=== PATIENT | male | born 1975 | race Caucasian/White ===

== ENCOUNTER 2020-05-21 15:58 | Outpatient (CLI) | payer BC, SELFPAY ==
--- NOTE | 2020-05-21 16:07 | MR_ITS ---
WS: [id number] MRI RIGHT KNEE NONCONTRAST TECHNIQUE: Axial PD, coronal PD fat sat, coronal PD, sagittal PD, and sagittal PD fat-sat images obta ined. CLINICAL INFORMATION: RIGHT MEDIAL MENISCUS TEAR COMPARISON: None. FINDINGS: Distal quadriceps and patella tendons are intact. Hypertrophic patella. Anterior and posterior crucia te ligaments are intact. Large suprapatellar effusion. Edema in Hoffa's fat pad. Distention of the colvin prapatellar bursa. Acute longitudinal tear involving the posterior horn medial meniscus extending to the articular surfa ce. Blunting of the medial meniscus. Lateral meniscus is intact. Mild chondromalacia patella. No subchondral edema. Slightly hypertrophic patella. Medial and lateral patellar retinacula appear intact. Medial collateral ligament appears intact. Irregularity with intra substance tear involving the mid to distal lateral collateral ligament consistent with Grade 2-3 injury Small lobulated popliteal cyst measuring 2.3 x 0.8 x 4.1 CM. Mild chronic thinning of the medial and lateral joint compartments with mild chondromalacia. MR/MR knee RT wo con* [id number] IMPRESSION: 1. Large suprapatellar effusion with distention of the suprapatellar bursa. 2. Anterior and posterior cruciate ligaments are intact. 3. Acute tear involving the posterior horn medial meniscus extending to the ar ticular surface with blunting of the medial meniscus. 4. Grade 2-3 injury involving the lateral collateral ligament with surrounding edema and intrasubstance signal abnormality. 5. Medial collateral ligament appears intact. 6. Grade I chondromalacia patella. 7. Lobulated popliteal cyst as above. 8. Mild chronic narrowing involving the medial and lateral joint compartments.
== END 2020-05-21 15:59 | disposition home or self-care (01) ==
PROVIDERS: Family Provider Family Medicine; PCP Family Medicine; Visit Provider Family Medicine
DX: S83.241A Other tear of medial meniscus, current injury, right knee, initial encounter (principal); X58.XXXA Exposure to other specified factors, initial encounter; M25.461 Effusion, right knee; M22.41 Chondromalacia patellae, right knee; M71.21 Synovial cyst of popliteal space [Baker], right knee
CPT/HCPCS: 73721

== ENCOUNTER → 2020-05-22 13:29 | Outpatient (BNVA) | payer BC, SELFPAY | PROVIDERS: Family Provider Family Medicine; PCP Family Medicine; Referring Provider Family Medicine; Visit Provider Specialist | DX: M25.569 Pain in unspecified knee (principal); M25.461 Effusion, right knee | CPT/HCPCS: 73560; 73565; 80500; 84450; 87070; 87075; 87077; 87186; 89050 ==

== ENCOUNTER 2020-05-23 14:38 | Outpatient (CLI) | payer BC, SELFPAY ==
[2020-05-23 15:12] LABS: Basophils # 0.1 10^3/uL (0.0-0.1); Basophils % 0.4 %; Eosinophils # 0.1 10^3/uL (0.0-0.8); Eosinophils % 0.8 %; Hematocrit 42.2 % (42.0-52.0); Hemoglobin 14.5 g/dL (11.7-16.6); Lymphocytes % 8.6 %; Mean Corpuscular HGB Conc 34.4 g/dL (30.0-36.0); Mean Corpuscular Hemoglobin 29.4 pg (28.0-34.0); Mean Corpuscular Volume 85.4 fL (80-94); Mean Platelet Volume 9.1 fL (7.4-10.4); Monocytes # 1.6 10^3/uL (0.2-0.9); Monocytes % 13.8 %; Neutrophils # 9.01 10^3/uL (1.8-7.7); Nucleated Red Blood Cells % 0 %; Platelet Count 272 10^3/cmm (130-400); Red Blood Count 4.94 10^6/uL (4.1-5.3); Red Cell Distribution Width 10.7 % (12.1-15.1); White Blood Count 11.9 10^3/uL (4.0-10.0)
[2020-05-23 16:04] LABS: Erythrocyte Sedimentation Rate 94 mm/hr (0-10)
[2020-05-23 16:20] LABS: C Reactive Protein 527.9 mg/L (0.0-4.9)
== END 2020-05-23 14:39 | disposition home or self-care (01) ==
LOC: LAB 14:42
PROVIDERS: Family Provider Family Medicine; PCP Family Medicine; Visit Provider Specialist
DX: S83.429A Sprain of lateral collateral ligament of unspecified knee, initial encounter (principal); S83.249A Other tear of medial meniscus, current injury, unspecified knee, initial encounter; X58.XXXA Exposure to other specified factors, initial encounter
CPT/HCPCS: 85025; 85651; 86140

== ENCOUNTER 2020-05-24 12:27 | Observation (INO) | payer BC, SELFPAY ==
[2020-05-24] VITALS (24 sets, daily range): BP systolic 135–175; BP diastolic 83–108; PULSE 77–123; RESP 15–20; TEMP 36.3–37.7; O2SAT 94–100; BMI 26.6; BMI 27.8
--- NOTE | 2020-05-24 12:55 | ED_ITS ---
HPI - General Adult General: Chief complaint: Medical Clearance Stated complaint: needs covid test for surgery Time Seen by Provider: 05/24/20 12:46 Source: patient Mode of arrival: ambulatory Limitations: no limitations History of Present Illness: HPI narrative: 44-year-old male who who is here for code screening before surgery. Patient has concerns for septic joint to right knee. Patient's had no cough or contact with anyone with coronavirus. He states he does have knee pain currently rates a 7 out of 10. Patient is scheduled for surgery this afternoon with Dr. Vera. Associated symptoms: Deny chest pain, dyspnea, headache(s), nausea, rash or vomiting Review of Systems Const: Denies: fever(s), chills, body aches or change in appetite Eyes: Denies: blurry vision or eye discomfort ENMT: Denies: throat pain or dental pain Card: Denies: chest pain Resp: Denies: dyspnea GI: Denies: abdominal pain, nausea, vomiting or diarrhea : Denies: dysuria Musc: Reports: extremity pain Skin/Breast: Denies: rash Neuro: Denies: headache(s) Psych: Denies: depression Johnnie/Lymph: Denies: easy bruising All/Imm: Denies: urticaria PFSH ED PFSH: Social History Smoking and tobacco status: never smoked Alcohol intake: current Alcohol intake frequency: few times a week Physical Exam Const: COMMON NORMALS: no acute distress, patient oriented x3 and healthy appearing HENMT: COMMON NORMALS: normocephalic and atraumatic HEAD & SCALP: normocephalic and atraumatic Eye: COMMON NORMALS: Equal, round and reactive pupils present and EOMs intact bilaterally PUPIL: Yes Equal, round and reactive pupils present Neck/C-Spine: COMMON NORMALS: full ROM and supple Chest: COMMONS NORMALS: normal inspection of the chest and normal palpation of entire chest wall Resp: COMMON NORMALS: normal respiratory effort, No retractions, No use of accessory muscles and clear to auscultation bilaterally AUSCULTATION: clear to auscultation bilaterally Cardio: COMMON NORMALS: regular rate, regular rhythm and No murmurs present (Cardio) RATE: regular rate RHYTHM: regular rhythm GI: COMMON NORMALS: Normal to inspection, nondistended, normoactive bowel sounds present, Soft to palpation, non-tender and no masses PALPATION: Yes Soft to palpation Extremity: COMMON NORMALS: normal to inspection and full ROM Neuro: COMMON NORMALS: patient oriented x3, moves all extremities and no focal motor deficits Psych: COMMON NORMALS: mental status grossly normal, Normal thought process present and cooperative THOUGHT PROCESS: Normal thought process present Skin: COMMON NORMALS: no rashes or lesions noted and no wounds GENERAL SKIN EXAM: no rashes or lesions noted Course Vital Signs: Vital signs: Vital Signs Temperature 98.8 F 05/24/20 12:40 Pulse Rate 123 H 05/24/20 12:40 Respiratory Rate 18 05/24/20 14:25 Blood Pressure 145/88 05/24/20 12:40 Pulse Oximetry 98 05/24/20 12:40 MDM - General Adult MDM Narrative: Medical decision making narrative: Patient presents here with likely septic knee joint. Patient has no signs of COVID. I spoke to Dr. Vera and will admit at this time and she is taken to surgery this afternoon. Patient has been stable while here. Discharge Plan Discharge Patient Disposition: Admitted As Inpatient Admit Provider: Addie Rodriguez Clinical Impression: Septic joint of right knee joint Qualifiers: Septic arthritis organism: due to unspecified organism Qualified Code(s): M00.9 - Pyogenic arthritis, unspecified Condition: Stable Coding Level of Care Code ED Interior Decorator for Vanessa Fwd Exam Comprehensive
--- NOTE | 2020-05-24 13:35 | PM.HP ---
Providers/Chief Complaint Primary Care Provider: José Miguel Rivera MD Chief Complaint: needs covid test for surgery History of Present Illness Rios Gary is a 44 year old male Medications/Allergies Home Medications Medication Instructions Recorded Confirmed Last Taken Type celecoxib 200 mg capsule 200 mg PO BID #60 cap 05/22/20 05/22/20 Unknown Rx hydrocodone 5 mg-acetaminophen 325 1 tab PO Q4H PRN 05/22/20 05/22/20 Unknown History mg tablet ibuprofen 200 mg tablet 200 mg PO Q6H PRN 05/22/20 05/22/20 Unknown History Knee Immobilizer #1 each 05/23/20 05/23/20 Unknown Rx Allergies Allergy/AdvReac Type Severity Reaction Status Date / Time Penicillins Allergy Unknown Verified 05/22/20 13:51 PFSH Acute PFSH: Social History Smoking and tobacco status: never smoked Alcohol intake: current Alcohol intake frequency: few times a week Vitals/I&O/Wt Last Vital Signs Temp 98.8 F 05/24/20 12:40 Pulse 123 H 05/24/20 12:40 Resp 18 05/24/20 12:40 BP 145/88 05/24/20 12:40 Pulse Ox 98 05/24/20 12:40 Weight last 48 hrs Weight 165 lb Coding Level of Care Code Acute Photogrammetric Technician for Vanessa Sebastian
[2020-05-24] MEDS: ondansetron 2 mg/ML SDV 2 mL 4 MG IVP (14:25)
[2020-05-24] MEDS: HYDROmorphone 1 mg/mL INJ 1 mL IVP (14:25)
[2020-05-24 15:26] LABS: SARS Covid-2 Antigen Negative (Negative)
--- NOTE | 2020-05-24 16:09 | ANES.PREANE2 ---
Pre-Anesthetic Assessment Pre-Anesthetic Assessment: Height/Weight: Height 1.68 m Weight 78.103 kg Temp Pulse Resp BP Pulse Ox 99.1 F 110 H 18 137/86 97 05/24/20 15:47 05/24/20 15:47 05/24/20 15:47 05/24/20 15:47 05/24/20 15:47 Preop Diagnosis: Septic right knee Proposed Procedure: Operation Date: 05/24/20 16:30 Proposed Procedures p Knee Arthroscopy(Right) - Addie Rodriguez MD Familial anesthetic complications: Patient adopted, no previous hx Was Beta Callie taken within 24 hours: N/A Last intake: Intake NPO > 8 hrs (states poor appetite, has not had bowel movement since tuesday. No nausea/vomiting) Last Liquid Date 05/24/20 Last Liquid Time 08: Last Solid Date 05/24/20 Last Solid Time 08: Social: Social History: Alcohol and Tobacco Comment: occassional beer Exam: Pre-Anes Outpt Exam: alert, oriented x 3, clear to auscultation bilaterally and regular rate & rhythm Airway: Cervical ROM: WNL MP: 1 Dentition: Full Anesthetic Plan: ASA status: 1 Anesthesia: General Risk of > 500 ml blood loss (7ml/kg in children): No PFSH Anesthesia PFSH: Social History Smoking and tobacco status: never smoked Alcohol intake: current Alcohol intake frequency: few times a week Data Anesthesia Other Labs: Laboratory Results - last 48 hr 05/24/20 14:45 SARS-CoV-2 Ag (Rapid) Negative Cardiac Studies: No Data to Display
--- NOTE | 2020-05-24 16:16 | PC.CHAP ---
Pastoral Care Encounter/Spiritual Assessment Type of Contact [] Declined spreading machine operator visit [] Patient/Family/Request visit [] Outpatient visit [] Follow-up visit [] Physician referral [] Code/Alert [X] Routine visit [] Staff referral [] Actively dying [] Patient sleeping [] Family support [] [] Out of room [] Palliative care [] [] Receiving care in room [] Pre-surgical visit [] Trauma [] Long length of stay [] ICU visit [] Other: Relational/Emotional Strength [] Patient feels connected with others/family/visitors/staff [] Distress [] Loneliness/isolation [] Abandonment Spirituality of Patient [] Person of Precious [] Attends Caodaism of their Precious [] Believes in Prayer [] Reads Bible or Nondenominational materials [] There are Spiritual issues to be addressed Retail Support Specialist Interventions [] Prayer [] Active listening [] Non-anxious presence [] Spiritual/emotional support [] Crisis/trauma care [] Spiritual counseling [] Bereavement support [] Provided bereavement packet [] Provided Bible/devotional materials [] Provided toy/stuffed animal, coloring book to patient or family member [] Provided Communion [] Anointing/[place] [] Salvation [] Completed spiritual assessment [] Other: Impact on Illness or Injury [] Angry [] Fearful [] Anxious [] Often cries [] Exhaustion [] Unable to work [] Unable to attend cheondoism [] Unable to walk/stand [] Unable to read [] Unable to drive [] Unable to eat/drink [] Unable to sleep [] Unable to be with family [] Patient intubated [] Other: Summary Time spent with patient
[2020-05-24] MEDS: sodium chloride 0.9% 1,000 ML 30 ML IV (16:20)
--- NOTE | 2020-05-24 16:30 | W.PM.OPSUD ---
Surgery/Procedure H&P Update DATE OF PROCEDURE: May 24, 2020 DATE H&P PERFORMED: 05/22/20 H&P UPDATE INFORMATION: I have reviewed H&P completed within last 30 days, I have examined patient prior to procedure and Changes to prior documentation as noted here CHANGES TO PREVIOUS DOCUMENTATION: The patient's culture results returned with positive strep B, sed rate is elevated, and based upon these results, we have elected to urgently proceed with arthroscopic evaluation, irrigation, and debridement. Was called with these results this morning. Secondary to having eaten shortly prior to my phone call to him, we scheduled him as urgently as possible with out anesthesia risk being increased. The patient was advised of the surgical plan, risks, and complications over the telephone. PREOP DIAGNOSIS: Septic right knee PRIMARY INDICATION FOR PROCEDURE: Septic arthritis right knee. PLANNED PROCEDURE: Operation Date: 05/24/20 16:30 Proposed Procedures p Knee Arthroscopy(Right) - Addie Rodriguez MD Related Problem List Diagnoses (1) Septic joint of right knee joint: Qualifiers: Septic arthritis organism: due to unspecified organism Qualified Code(s): M00.9 - Pyogenic arthritis, unspecified (2) Rupture of lateral collateral ligament of knee: (3) Medial meniscus tear: Qualifiers: Tear current or old: current Encounter type: initial encounter Meniscus tear of knee type: complex Laterality: right Qualified Code(s): S83.231A - Complex tear of medial meniscus, current injury, right knee, initial encounter
[2020-05-24] MEDS: ceFAZolin 1,000 mg SDV 6000 MG IRRIGATION (17:15)
[2020-05-24 17:35] LABS: RBC Synovial Fluid 18 10^3/uL (0-0); Synovial Fluid Mononuclear # 3.233 10^3/uL
[2020-05-24 17:43] LABS: Color Synovial Fluid YELLOW (PALE YELLOW)
[2020-05-24 17:44] LABS: Appearance Synovial Fluid CLOUDY (CLEAR); PATH Referal YES
[2020-05-24] MEDS: morphine 4 mg/mL SDV 1 mL 8 MG IVP (17:45)
--- NOTE | 2020-05-24 17:58 | PM.OP ---
Operative Report Date of procedure: May 24, 2020 Pre-op Diagnosis: Right Knee Septic Arthritis with Medial Meniscus Tear Post-op Diagnosis: Right Knee Septic Arthritis with Medial and Lateral Meniscus Tear Post-op Findings: Significant synovitis and synovial fluid with obvious infection with medial and lateral meniscal tears Procedure Done: Right arthroscopic knee surgery with partial medial and lateral meniscectomies, extensive sign of ectomy, and irrigation and debridement with 12 L of fluid Specimens removed/disposition: Fluid and synovial tissue removed for culture. Pathology: none sent Surgeon: Addie Rodriguez Veterinary Pharmacologist: [facility] OR technicians Anesthesia: General (With LMA) Estimated blood loss (mL): 5 Tourniquet time (min): 53 Tourniquet time: At 300 mmHg IV fluids (mL): 800 Urine output (mL): 0 Complications: None Findings: Very thick synovial fluid, cloudy and purulent, consistent with significant infection. Significant synovitis also consistent with infection. Complex medial meniscal tear as outlined on MRI plus lateral meniscal tear, inner rim only. Condition: stable Disposition: PACU (Then to floor for postoperative antibiotics for 24 hours. 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 He saw his primary care who arranged for him to have an MRI prior to seeing me. There was noted to be an effusion and a medial meniscal tear with associated tear of the lateral collateral ligament. Patient was seen in my office, his knee was aspirated for 75 cc of fluid which was somewhat cloudy. This was sent for Gram stain, cell count, and culture. Today, I was notified that the patient's culture was growing strep B, therefore, the patient was brought to the hospital for urgent arthroscopic irrigation and debridement with partial medial and lateral meniscectomies and extensive synovectomy. Procedure: Patient was brought to the operating theater and after undergoing adequate neuro anesthesia per LMA, the patient's right lower extremity was prepped and draped in usual fashion utilizing DuraPrep. A tourniquet was placed high on the leg prior to prepping and draping. The tourniquet was elevated prior to commencement of the surgical procedure to 300 mmHg. Total tourniquet time was 53 minutes. Exsanguination was not performed prior to elevation of the tourniquet secondary to the infection. Prior to commencement of the surgical procedure, a surgical pause was performed. At the time of the surgical pause, we identified the site and side of surgery. We also confirmed the patient's identity and availability of Ancef after cultures were obtained. Preoperative surgical markings were also visualized at this time. Standard arthroscopic portals were utilized including superolateral, inferomedial, and inferolateral portals. When these portals were made, there was noted to be significant pressure in the knee, and approximately 50 cc of fluid which was quite thickened and purulent was collected. This was sent for cell count with differential, cultures, and additionally, synovial tissue was collected for culture. The examination commenced in the suprapatellar pouch area where there was significant synovitis and erythema about the synovium. This was debrided with a shaver to allow better visualization. The arthroscope was then passed in the medial compartment where there was noted to be significant synovitis obscuring the view of the joint. This was debrided aggressively with an intra-articular shaver. The heat wand was also used to obtain hemostasis. The medial meniscus was evaluated and found to be torn as noted on the MRI. This was debrided with a combination of basket forceps and the intra-articular shaver. The meniscus was pulled upon after being addressed in this manner, and it was found to not be displaceable into the knee joint. The arthroscope was then passed across the notch area where anterior cruciate ligament was visualized and found to be intact, but again extensive synovium was debrided from this area. The scope was passed into the lateral compartment with the knee in a [id number] position. Lateral meniscus was noted to have inner rim tearing. There was also significant synovitis in the lateral compartment. This was debrided once again with the intra-articular shaver. The meniscus was debrided with a combination of the shaver and the intra-articular heat wand. Once lateral meniscus had been thus prepared it was palpated and found to be intact and not displaceable into the knee joint. Scope was then returned to the medial compartment where final evaluation of this compartment was accomplished. The arthroscope was then returned to the patellofemoral joint where further synovectomy was accomplished including addressing both gutters. The scope was passed back through the knee compartments to evaluate for other abnormalities. Finding none, attention was directed to closure. The knee was copiously irrigated and suctioned dry. Following this, each portal was closed with a simple suture using 3-0 nylon. Additionally, the knee was injected with 20 mL of half percent ropivacaine, 20 mils of 1% lidocaine with epinephrine and 8 mg of morphine. Additional 10 mL of ropivacaine was placed about the portals. Sterile dressing was placed consisting of the Xeroform gauze 4 x 4's, soft roll, and an Rico wrap. Patient was returned to Recovery Room in satisfactory condition where he will be discharged to the floor for 24 hours of postoperative antibiotics and he is instructed to follow-up with me in the office as scheduled. There were no complications and specimens were sent to microbiology. Associated Problem List Diagnoses (1) Septic joint of right knee joint: Qualifiers: Septic arthritis organism: due to unspecified organism Qualified Code(s): M00.9 - Pyogenic arthritis, unspecified (2) Rupture of lateral collateral ligament of knee: (3) Medial meniscus tear: Qualifiers: Encounter type: initial encounter Laterality: right Meniscus tear of knee type: complex Tear current or old: current Qualified Code(s): S83.231A - Complex tear of medial meniscus, current injury, right knee, initial encounter
[2020-05-24] MEDS: fentaNYL 50 mcg/mL INJ 2mL IVP ×2 (18:22→18:27)
--- NOTE | 2020-05-24 19:10 | SUR.PHASEI ---
184 PT BP ELEVATED SINCE AT BEDSIDE, PT ENCOURAGED TO RELAX , AND SLOW BREATHES, PT TALKATIVE AND CALM, STATES MY LEG DOESNT HURT , IT JUST ISNT COMFORTABLE, SEE PAIN MEDS GIVEN EARLIER FOR PT RATING DISCOMFORT AT 8 , PT NOW DOZING AFTER LEFT, REPORT CALLED AND PT TO FLOOR BP INPROVED. 1849 PT MOVED SELF TO BED DISTAL RT FOOT PINK WARM CAP REFILL <3 SECONDS, PT TALKATIVE WITH STAFF, STATES ( MY LEG FEELS BETTER) BP 137/94, HR 91 RESP 18 SATS ON RA 97&
[2020-05-24] MEDS: acetaminophen 500 mg Tablet 1000 MG PO (19:29)
[2020-05-24] MEDS: docusate sodium 100 mg Capsule PO (19:29)
[2020-05-24] MEDS: CELEcoxib 200 mg Capsule PO (19:29)
[2020-05-25] VITALS: BP 135/76; PULSE 77; RESP 18; TEMP 36.7; O2SAT 95
[2020-05-25] MEDS: acetaminophen 500 mg Tablet 1000 MG PO (03:54)
[2020-05-25 05:20] VITALS: BP 127/80; PULSE 71; RESP 17; TEMP 37.2; O2SAT 95
[2020-05-25] MEDS: aspirin 325 mg EC Tablet PO (07:08)
[2020-05-25] MEDS: CELEcoxib 200 mg Capsule PO (07:08)
[2020-05-25] MEDS: docusate sodium 100 mg Capsule PO (07:08)
[2020-05-25 07:39] VITALS: BP 150/90; PULSE 92; RESP 18; TEMP 36.4
[2020-05-25 08:46] VITALS: BP 150/90; PULSE 92; RESP 18; TEMP 36.4
[2020-05-25 12:00] VITALS: PULSE 94; TEMP 36.3
--- NOTE | 2020-05-25 12:45 | PM.DCS ---
Discharge Providers Date of Admission: 05/24/20 19:01 Date of Discharge: May 25, 2020 Attending Provider at Admission: Addie Rodriguez MD Attending Provider at Discharge: Addie Rodriguez MD Primary Care Provider: José Miguel Rivera MD Diagnoses at Discharge Discharge Diagnosis (1) Septic joint of right knee joint: Status: Acute Qualifiers: Septic arthritis organism: due to unspecified organism Qualified Code(s): M00.9 - Pyogenic arthritis, unspecified (2) Rupture of lateral collateral ligament of knee: Status: Acute (3) Medial meniscus tear: Status: Acute Qualifiers: Tear current or old: current Encounter type: initial encounter Meniscus tear of knee type: complex Laterality: right Qualified Code(s): S83.231A - Complex tear of medial meniscus, current injury, right knee, initial encounter (4) Lateral meniscus derangement: Status: Acute Reason for Visit Reason for Visit: Septic Right Knee Brief History: This 44 year old male patient presented upon referral from his primary care physician with an injury to the right knee and MRI findings of lateral collateral ligament and medial meniscal tear Hospital Course Hospital Course: The patient was brought urgently to the hospital due to positive cultures from his knee aspirate. He was scheduled for the following procedure: Right arthroscopic knee surgery with partial medial and lateral meniscectomies, extensive synovectomy, and irrigation and debridement with 12 L of fluid Discharge Summary: The patient was sent to the floor following arthroscopic irrigation and debridement with synovectomy and partial medial and lateral menisectomies. He was maintained in hospital for IV antibiotic therapy. Following the surgery, he was better able to ambulate with less pain. He remained neurologically intact. The patient was discharged home the first post-op day to follow up with me in the office the following day. Discharge Data Data Completed and Pending: Pending at discharge Category Date Time Status ES surgery / GI i mages Routine Exams 05/24/20 15:50 Taken Anaerobic Culture Routine Lab 05/24/20 17:00 Received Body Fluid Cultur e & GS Routine Lab 05/24/20 17:00 Received Tissue Culture an d Gram Stain Routi ne Lab 05/24/20 17:00 Received Wound Culture Rou brent Lab 05/24/20 17:00 Received Labs from last 24 hours 05/24/20 05/24/20 17:00 14:45 Synovial Color Yellow Synovial Appearanc e Cloudy Synovial WBC 57769 H Synovial RBC 18 H Synovial Mononucle ar 3.233 Synov Polynuclear WBCs 62.890 Synovial Other Corry ls Not Reportable Synovial Polynucle ar % 95.200 Synovial Mononucle ar % 4.800 SARS-CoV-2 Ag (Rap id) Negative Path Cons w/Slide Yes Vitals: Last Vital Signs Temp 97.6 F 05/25/20 08:46 Pulse 92 05/25/20 08:46 Resp 18 05/25/20 08:46 BP 150/90 05/25/20 08:46 Pulse Ox 95 05/25/20 05:20 Discharge Plan Discharge Patient Disposition: Home Condition: Stable Prescriptions: New oxycodone 5 mg tablet 5 mg PO Q6H PRN (Reason: pain) Qty: 30 RF: 0 cefadroxil 1 gram tablet 1,000 mg PO BID 10 Days Qty: 20 RF: 0 Continued celecoxib [Celebrex] 200 mg capsule 200 mg PO BID Qty: 60 RF: 0 (DME) Knee Immobilizer See Rx Instructions .ROUTE .MEDSUPPLY Qty: 1 RF: 0 Held hydrocodone-acetaminophen [[place]] 5-325 mg tablet 1 tab PO Q4H PRN (Reason: Pain) RF: 0 Hold Instructions: Resume on 05/30/20. Discharge Orders: Discharge Order (Routine); Ordered 05/24/20 Ordered By: Addie Rodriguez Referrals: Addie Rodriguez MD [Physician] - 4-7 days (Please call my office for appointment on Tuesday for reevaluation.) Discharge Diet: Advance as tolerated and Usual diet Discharge Activity: Resume usual activity and Increase activity as tolerated Patient Instructions: Cefadroxil (By mouth), Oxycodone, Slow Release (By mouth) Activity Restrictions/Additional Instructions: May weight-bear as tolerated. Leave dressing in place. Discharge Date/Time: 05/25/20 09:43 Discharge Attestations Time Spent in Discharge Care*: less than 30 min Quality Metrics Clinical Quality Measures During this hospital stay, did patient experience: None Coding Level of Care Code Acute Chest Painting And Sealing Supervisor for g Fwd Diagnoses Septic joint of right knee joint M00.9 Septic arthritis organism: due to unspecified organism Rupture of lateral collateral ligament of knee S83.429A Medial meniscus tear S83.231A Tear current or old: current Encounter type: initial encounter Meniscus tear of knee type: complex Laterality: right Lateral meniscus derangement M23.302
[2020-05-25 16:00] VITALS: BP 139/94; PULSE 92; RESP 18; TEMP 37.3
== END 2020-05-25 09:43 | disposition home or self-care (01) ==
LOC: ER 12:55 → MEDSURG 15:18
PROVIDERS: Admitting Provider Specialist; Emergency Provider Emergency Medicine; PCP Family Medicine; Visit Provider Specialist
PROC: (CPT 29870; principal; 2020-05-24 16:30)
DX: S83.231A Complex tear of medial meniscus, current injury, right knee, initial encounter (principal); S83.281A Other tear of lateral meniscus, current injury, right knee, initial encounter; M65.161 Other infective (teno)synovitis, right knee; M00.861 Arthritis due to other bacteria, right knee; B95.1 Streptococcus, group B, as the cause of diseases classified elsewhere; X50.1XXA Overexertion from prolonged static or awkward postures, initial encounter
CPT/HCPCS: 29876; 29880; 12345; 80500; 87070; 87075; 87176; 87205; 87426; 89050; 96365; 96374; 96375; 97161; 99282; 99285; G0378; J0131; J0690; J1100; J1170; J2270; J2405; J2704; J2795; J3010; J7030

== ENCOUNTER 2020-05-27 10:31 | Day surgery (SDC) | payer BC, SELFPAY ==
[2020-05-26 12:30] VITALS: BMI 26.6
[2020-05-27] VITALS (8 sets, daily range): BP systolic 131–152; BP diastolic 95–105; PULSE 80–119; RESP 13–18; TEMP 36.6–37.3; O2SAT 95–100
[2020-05-27] MEDS: sodium chloride 0.9% 1,000 ML 30 ML IV (11:20)
--- NOTE | 2020-05-27 11:36 | ANES.PREANE2 ---
Pre-Anesthetic Assessment Pre-Anesthetic Assessment: Height/Weight: Height 1.68 m Weight 74.843 kg Temp Pulse Resp BP Pulse Ox 97.9 F 119 H 18 131/105 100 05/27/20 10:53 05/27/20 10:53 05/27/20 10:53 05/27/20 10:53 05/27/20 10:53 Preop Diagnosis: Infected right knee Proposed Procedure: Operation Date: 05/27/20 12:20 Proposed Procedures p Knee Arthroscopy with medial meniscus repair and debridement [id number] S83.249A(Right) - Addie Rodriguez MD Familial anesthetic complications: none Last intake: Intake Last Liquid Date 05/26/20 Last Liquid Time 23:30 Last Solid Date 05/26/20 Last Solid Time 20:00 Social: Social History: Tobacco Comment: occasional Exam: Pre-Anes Outpt Exam: alert, oriented x 3, clear to auscultation bilaterally and regular rate & rhythm Airway: Cervical ROM: WNL MP: 1 Dentition: Full Anesthetic Plan: ASA status: 1 Anesthesia: General Risk of > 500 ml blood loss (7ml/kg in children): No Meds/Allergies Current Medications: Current Medications Generic Name Dose Route Start Last Admin Trade Name Freq PRN Reason Stop Dose Admin Sodium Chloride 1,000 mls @ 30 ml s/hr 05/27/20 07:30 05/27/20 11:20 Sodium Chloride 0.9% IV 05/28/20 07:29 30 mls/hr .Q24H KACY Administration PFSH Anesthesia PFSH: Social History Smoking and tobacco status: never smoked Alcohol intake: current Alcohol intake frequency: few times a week Data Anesthesia CBC & Chem 7: 05/27/20 11:14 Cardiac Studies: No Data to Display
[2020-05-27] MEDS: clindamycin 600 MG/50 ML PREMIX 100 MG IV (11:39)
--- NOTE | 2020-05-27 11:43 | P.HPUD_ITS ---
Surgery/Procedure H&P Update DATE OF PROCEDURE: May 27, 2020 DATE H&P PERFORMED: 05/22/20 H&P UPDATE INFORMATION: I have reviewed H&P completed within last 30 days and H&P is in [facility] [place] [facility] on date indicated PREOP DIAGNOSIS: Infected right knee PLANNED PROCEDURE: Operation Date: 05/27/20 12:20 Right arthroscopic knee surgery with irrigation and debridement Related Problem List Diagnoses (1) Septic joint of right knee joint: Qualifiers: Septic arthritis organism: due to unspecified organism Qualified Code(s): M00.9 - Pyogenic arthritis, unspecified
[2020-05-27 11:45] LABS: Basophils # 0.1 10^3/uL (0.0-0.1); Basophils % 1.1 %; Eosinophils # 0.1 10^3/uL (0.0-0.8); Eosinophils % 1.1 %; Hemoglobin 15.4 g/dL (11.7-16.6); Lymphocytes # 1.3 10^3/uL (0.8-4.8); Lymphocytes % 12.1 %; Mean Corpuscular HGB Conc 34.2 g/dL (30.0-36.0); Mean Corpuscular Hemoglobin 30.1 pg (28.0-34.0); Mean Corpuscular Volume 87.9 fL (80-94); Mean Platelet Volume 8.9 fL (7.4-10.4); Monocytes # 1.4 10^3/uL (0.2-0.9); Monocytes % 13.3 %; Neutrophils # 7.11 10^3/uL (1.8-7.7); Neutrophils % 65.9 %; Nucleated Red Blood Cells % 0 %; Platelet Count 424 10^3/cmm (130-400); Red Blood Count 5.12 10^6/uL (4.1-5.3); Red Cell Distribution Width 10.6 % (12.1-15.1); White Blood Count 10.8 10^3/uL (4.0-10.0)
[2020-05-27 12:12] LABS: Slide Review Slide Review Perform
[2020-05-27] MEDS: morphine 4 mg/mL SDV 1 mL 8 MG SUBCUT (12:26)
[2020-05-27] MEDS: ceFAZolin 1,000 mg SDV 3000 MG IRRIGATION (12:35)
--- NOTE | 2020-05-27 13:05 | SUR.PHASEI ---
1300 PT AWAKES EASILY WITH GOOD RESP NOTED DRESSING AND KNEE IMMOBIIZER TO RT LEG D/I DISTAL FOOT WARM WITH STRONG REGULAR PULSE NOTED.
--- NOTE | 2020-05-27 13:15 | P.OP_ITS ---
Operative Report Date of procedure: May 27, 2020 Pre-op Diagnosis: Infected right knee Post-op Diagnosis: Right septic knee with new lateral meniscal tear Procedure Done: Right arthroscopic knee surgery with aggressive irrigation and debridement and removal anterior horn lateral meniscal tear. Specimens removed/disposition: Cultures obtained at the beginning of the case. Pathology: none sent Surgeon: Addie Rodriguez Coding Support Specialist: [facility] or technicians Anesthesia: General (LMA, ASA 1) Estimated blood loss (mL): 10 Tourniquet time (min): 34 Tourniquet time: At 250 mmHg IV fluids (mL): 900 Urine output (mL): 0 Complications: None Findings: Synovitis and hematoma. 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 He saw his primary care who arranged for him to have an MRI prior to seeing me. There was noted to be an effusion and a medial meniscal tear with associated tear of the lateral collateral ligament. Patient was seen in my office, his knee was aspirated for 75 cc of fluid which was somewhat cloudy. This was sent for Gram stain, cell count, and culture. I was notified that the patient's culture was growing strep B, therefore, the patient was brought to the hospital for urgent arthroscopic irrigation and debridement with partial medial and lateral meniscectomies and extensive sy novectomy over this past weekend with a date of surgery May 24. He was seen in the office yesterday, and he still had swelling in the knee. Given the degree of infection, we elected to proceed with repeat irrigation and debridement. Procedure: Patient was brought to the operating theater and after undergoing adequate general anesthesia per LMA, the patient's right lower extremity was prepped and draped in usual fashion utilizing DuraPrep. A tourniquet was placed high on the leg prior to prepping and draping. The tourniquet was elevated prior to commencement of the surgical procedure to 250 mmHg. Total tourniquet time was 34 minutes. Prior to commencement of the surgical procedure, a surgical pause was performed. At the time of the surgical pause, we identified the site and side of surgery. We also confirmed the patient's identity and availability of Ancef after cultures were obtained. Preoperative surgical markings were also visualized at this time. Standard arthroscopic portals were utilized including superolateral, inferomedial, and inferolateral portals. These were the portals which were previously utilized, and upon entry into the knee joint, there was noted to be significant hematoma, but no sara purulent fluid. This was sent for culture. The examination commenced in the suprapatellar pouch area where there was significant synovitis and hematoma. This was debrided with a shaver to allow better visualization. The arthroscope was then passed in the medial compartment where there was noted to be hematoma, but there was no new tear in the medial meniscus. The arthroscope was then passed across the notch area where anterior cruciate ligament was visualized and found to be intact, but synovium was debr ided from this area. The scope was passed into the lateral compartment with the knee in a [id number] position. Lateral meniscus was noted to have a new tear involving the anterior horn of the lateral meniscus. This was completely displaced and likely due to the effects of the infection. This was debrided once again with the intra-articular shaver and the basket forceps. The meniscus was there smoothed with the intra-articular heat wand. Once lateral meniscus had been thus prepared it was palpated and found to be intact and not displaceable into the knee joint. Scope was then returned to the medial compartment where final evaluation of this compartment was accomplished. The arthroscope was then returned to the patellofemoral joint where further irrigation was accomplished the scope was passed back through the knee compartments to evaluate for other abnormalities. Finding none, attention was directed to closure. The knee was copiously irrigated and suctioned dry. Total irrigation through the knee was five 3 L bags each containing Ancef. Following this, each portal was closed with a simple suture using 3-0 nylon. Was placed into the knee and about the portals. Sterile dressing was placed consisting of the Xeroform gauze, 4 x 4's, soft roll, and an Rico wrap. Patient was returned to Recovery Room in satisfactory condition where he will be discharged to home, and he is instructed to follow-up with me in the office as scheduled. There were no complications and specimens were sent to microbiology. Associated Problem List Diagnoses (1) Lateral meniscus derangement: Qualifiers: Laterality: right Qualified Code(s): M23.300 - Other meniscus derangements, unspecified lateral meniscus, right knee (2) Septic joint of right knee joint: Qualifiers: Septic arthritis organism: due to unspecified organism Qualified Code(s): M00.9 - Pyogenic arthritis, unspecified
[2020-05-27] MEDS: oxyCODONE-APAP 5-325 mg Tablet 1 TAB PO (13:39)
== END 2020-05-27 14:11 | disposition home or self-care (01) ==
PROVIDERS: PCP Family Medicine; Visit Provider Specialist
PROC: (CPT 29870; principal; 2020-05-27 12:00)
DX: S83.281A Other tear of lateral meniscus, current injury, right knee, initial encounter (principal); M65.161 Other infective (teno)synovitis, right knee; L76.32 Postprocedural hematoma of skin and subcutaneous tissue following other procedure; M00.9 Pyogenic arthritis, unspecified; Y83.8 Other surgical procedures as the cause of abnormal reaction of the patient, or of later complication, without mention of misadventure at the time of the procedure
CPT/HCPCS: 29871; 12345; 36415; 85025; 87070; 87075; 87205; 96365; J0131; J0690; J1100; J2270; J2405; J2704; J2765; J2795; J3010; J3490; J7030

== ENCOUNTER 2020-06-06 13:01 | Outpatient (CLI) | payer BC, SELFPAY ==
--- NOTE | 2020-06-06 13:09 | USCV_ITS ---
Rios Gary Age: 44 Gender: M : 1975 Exam Date: 06/06/2020 13:33 Ordering Phys: José Miguel Rivera MD Technologist: Camilla Wren [place]am [place] [facility] [place] Indication: fever, bacteremia BP: / HR: 84 Rhythm: Sinus Technical Quality: Good MEASUREMENTS (Male / Female) Normal Values 2D ECHO LV Diastolic Diameter PLAX 4.4 cm 4.2 - 5.9 / 3.9 - 5.3 cm LV Systolic Diameter PLAX 2.6 cm IVS Diastolic Thickness 1.1 cm 0.6 - 1.0 / 0.6 - 0.9 cm IVS Systolic Thickness 1.3 cm LVPW Diastolic Thickness 0.6 cm 0.6 - 1.0 / 0.6 - 0.9 cm LVPW Systolic Thickness 1.7 cm LV Ejection Fraction 2D Teich 73.5 % LV Ejection Fraction MOD 2C 66.9 % LV Ejection Fraction 2C AL 63.7 % LA Diameter 2.9 cm LA Width 2.3 cm LA Height 3.9 cm RA Width 2.3 cm RA Height 4.8 cm M-MODE LV Diastolic Diameter MM 4.8 cm 4.2 - 5.9 / 3.9 - 5.3 cm LV Systolic Diameter MM 2.6 cm LV Ejection Fraction MM Teich 77.1 % IVS Diastolic Thickness MM 0.9 cm 0.6 - 1.0 / 0.6 - 0.9 cm IVS Systolic Thickness MM 1.7 cm LVPW Diastolic Thickness MM 0.9 cm 0.6 - 1.0 / 0.6 - 0.9 cm LVPW Systolic Thickness MM 1.7 cm Aortic Annulus Diameter 3.5 cm LA Ao Ratio MM 0.8 MV E Point Septal Separation 0.5 cm DOPPLER AV Peak Velocity 117.0 cm/s LVOT Peak Velocity 104.0 cm/s MV Peak Velocity 78.0 cm/s MV Area PHT 4.9 cm squared Mitral E to A Ratio 1.2 MV E' Velocity 12.0 cm/s Mitral E to MV E' Ratio 7.9 Mitral E to LV E' Lateral Ratio 6.3 Mitral E to LV E' Septal Ratio 10.8 TR Peak Velocity 87.0 cm/s TR Peak Gradient 3.0 mmHg Right Atrial Pressure 3.0 mmHg Pulmonary Artery Systolic Pressu 6.0 mmHg PV Peak Velocity 83.0 cm/s RV Acceleration Time 0.1 s FINDINGS Left Ventricle Normal left ventricular size and systolic function with no regional wall motion abnormalities. Mild LVH is noted. Normal diastolic filling pattern. Right Ventricle The right ventricle is normal in size and function. Right Atrium The right atrium is normal in size. Left Atrium The left atrium is normal in size. Mitral Valve Structurally normal mitral valve without significant stenosis or prolapse. There is trace mitral regurgitation. Aortic Valve Structurally normal aortic valve without significant sclerosis or stenosis. There is no aortic regurgitation. Tricuspid Valve Structurally normal tricuspid valve without significant stenosis or regurgitation. RVSP could not be calculated because of insufficient TR jet. Pulmonic Valve Grossly normal valve. Not very well visualized. Pericardium Normal pericardium without effusion. Aorta Normal ascending aorta dimension. CONCLUSIONS LV systolic function is normal with EF of 55 to 60%. Diastolic function is normal No evidence of vegetation or mass on the valves. Michael Cox MD (Electronically Signed) Final Date: 06 June 2020 17:00 S
== END 2020-06-06 13:02 | disposition home or self-care (01) ==
LOC: RAD 13:04
PROVIDERS: PCP Family Medicine; Visit Provider Family Medicine
DX: R78.81 Bacteremia (principal); R50.9 Fever, unspecified
CPT/HCPCS: 93306

== ENCOUNTER 2020-06-25 07:35 | Outpatient (RCR) | payer BC, SELFPAY | END 2020-07-16 23:59 | disposition home or self-care (01) | LOC: SPT 07:35 | PROVIDERS: PCP Family Medicine; Referring Provider Specialist; Visit Provider Specialist | DX: Z47.89 Encounter for other orthopedic aftercare (principal) | CPT/HCPCS: 97110; 97161 ==

== ENCOUNTER 2020-07-17 06:00 | Outpatient (RCR) | payer BC, SELFPAY | END 2020-08-16 23:59 | disposition home or self-care (01) | LOC: SPT 06:00 | PROVIDERS: PCP Family Medicine; Referring Provider Specialist; Visit Provider Specialist | DX: Z47.89 Encounter for other orthopedic aftercare (principal) | CPT/HCPCS: 97110 ==

== ENCOUNTER 2020-08-06 10:18 | Outpatient (CLI) | payer BC, SELFPAY ==
--- NOTE | 2020-08-06 10:55 | MR_ITS ---
WS: [id number] MRI RIGHT knee, with and without contrast. HISTORY: Additional imaging of the RIGHT knee for further evaluation. This study will be read in conj unction with the MRI performed on 08/05/2020. Additional history: No additional trauma since the prior MRI of 05/21/2020. As per history there has be en prior surgery and history of a septic joint. Continued pain with no improvement with home care physical therapist apy. Additional MRI imaging is performed pre and postcontrast to further evaluate for septic joint. There is marked synovial and perisynovial thickening throughout the joint spaces of the knee. Most si gnificant surrounding the femoral condyles and through the joint spaces. There is marked enhancement throughout the joint space including the synovium. There is soft tissue edema. Synovial enhancement d iffusely throughout the knee. There is a very small suprapatellar effusion. There is increased enhanc ement involving the infrapatellar fat pad. Again noted is narrowing of the joint spaces with loss of cartilage in all 3 compartments but greates t in the medial and lateral compartments. Low signal involving the tibial plateau does enhance on the postcontrast sequences. This marrow edema can be reactive and related to response from the inflammat ion or osteomyelitis. Most significant change in the bone is in the lateral tibial plateau there may be a possible fracture as there is a change in the contour of the tibial plateau. Additional loose karina dies around the knee. MR/MR knee RT wo/w con [id number] IMPRESSION: 1. There is significant synovial/perisynovial thickening with enhancement throu ghout the knee. These findings are most likely due to a septic joint. Synovial thickening and enhancement can also be seen after treatment of a septic joint. 2. Marrow edema most significant in the tibial plateau and to a lesser extent t he patella and femoral condyles. Marrow edema does enhance. This may be reactiv e marrow edema from the septic joint. Osteomyelitis may appear similar. 3. Progressive loss of the joint spaces throughout the knee and cartilage and t he normal contour of the tibial plateau. Likely sequela from the septic joint. 4. Cannot exclude pathological fracture involving the lateral tibial plateau. Notified José Miguel Rivera MD at 08/06/2020 12:54 PM.
== END 2020-08-06 10:19 | disposition home or self-care (01) ==
LOC: RADSHAW 10:19
PROVIDERS: PCP Family Medicine; Visit Provider Family Medicine
DX: M00.861 Arthritis due to other bacteria, right knee (principal); R60.0 Localized edema
CPT/HCPCS: 73723; A9579